=== PATIENT | female | born 1990 | race Caucasian/White ===

== ENCOUNTER 2019-02-03 15:51 | Emergency (ER) | payer MEDICAID ==
[~2019-02-03] VITALS: Ht 157.5 cm; Wt 120.5 kg
[2019-02-03 16:08] VITALS: Ht 157.5 cm; Wt 120.5 kg
[2019-02-03] MEDS ORDERED: LISINOPRIL-HCT1 EAC4 PO (16:12)
[2019-02-03] MEDS ORDERED: [UNRECOGNIZED DRUG - OTHER] (16:16)
[2019-02-03] MEDS ORDERED: PROVENTIL/2.5 MG/3 M INH (16:41)
[2019-02-03] MEDS ORDERED: ALBUTEROL SULF8.5 GM INH (16:41)
[2019-02-03 17:25] VITALS: BP 151/97
== END 2019-02-03 17:25 | disposition home or self-care (01) ==
LOC: D.ER 15:51
DX: R06.2 Wheezing (principal); Z87.09 Personal history of other diseases of the respiratory system

== ENCOUNTER 2019-02-14 16:25 | Emergency (ER) | payer SELFPAY ==
[~2019-02-14] VITALS: Ht 157.5 cm; Wt 127.3 kg
[~2019-02-14 16:25] MED LIST: ALBUTEROL SULF8.5 GM INH; LISINOPRIL-HCT1 EAC4 PO; PROVENTIL/2.5 MG/3 M INH; [UNRECOGNIZED DRUG - OTHER]
[2019-02-14 16:30] VITALS: Ht 157.5 cm; Wt 127.3 kg
[2019-02-14 17:01] LABS: BASOPHILS 0.7 % (0-2); EOSINOPHILS 4.2 % (0-7); HEMATOCRIT 36.2 % (36.0-48.0); HEMOGLOBIN 12.2 g/dL (12-16); IMMATURE GRANULOCYTES 0.2 % (0-5); LYMPHOCYTES 32.2 % (15-50); MCH 28.2 pg (26.0-34.0); MCHC 33.7 g/dL (31.0-37.0); MCV 83.8 fL (80.0-100.0); MEAN PLATELET VOLUME 9.8 fL (7.4-10.4); NEUTROPHILS 56.7 % (40-80); PLATELET COUNT 242 10x3/uL (130-400); RBC 4.32 10x6/uL (4.00-5.40); WBC 6.1 10x3/uL (4.8-10.8)
[2019-02-14 17:26] LABS: ALBUMIN 3.5 g/dL (3.4-5.0); ALKALINE PHOSPHATASE 93 U/L (46-116); ALT (SGPT) 22 U/L (10-68); CALC OSMOLALITY 277 mosm/kg (275-300); CALCIUM 8.8 mg/dL (8.5-10.1); CARBON DIOXIDE 28.2 mmol/L (21.0-32.0); CHLORIDE - SERUM 105 mmol/L (98-107); CREATININE - SERUM 0.7 mg/dL (0.6-1.3); GLUCOSE 95 mg/dL (74-106); POTASSIUM - SERUM 4.1 mmol/L (3.5-5.1); PROTEIN - SERUM 7.4 g/dL (6.4-8.2); SODIUM 140 mmol/L (136-145); UREA NITROGEN 9 mg/dL (7-18); eGFR NON AFRICAN AMERICAN > 90 mL/min (90-120)
[2019-02-14] MEDS ORDERED: PHENERGAN DM SYR5 ML PO (20:18)
[2019-02-14] MEDS ORDERED: VIBRAMYCIN 100100 MG PO (20:18)
[2019-02-14] MEDS ORDERED: ALBUTEROL SULF8.5 GM INH (20:18)
[2019-02-14 20:58] VITALS: BP 138/93
== END 2019-02-14 20:58 | disposition home or self-care (01) ==
LOC: D.ER 16:25
PROVIDERS: Emergency Medicine
DX: J06.9 Acute upper respiratory infection, unspecified (principal); R50.9 Fever, unspecified

== ENCOUNTER 2019-04-02 16:48 | Emergency (ER) | payer SELFPAY ==
[~2019-04-02] VITALS: Ht 157.5 cm; Wt 129.6 kg
[~2019-04-02 16:48] MED LIST changes: +PHENERGAN DM SYR5 ML PO; +VIBRAMYCIN 100100 MG PO
[2019-04-02 17:40] VITALS: Ht 157.5 cm; Wt 129.6 kg
[2019-04-02] MEDS ORDERED: VOLTAREN75 MG PO (19:47)
[2019-04-02] MEDS ORDERED: ALBUTEROL SULF8.5 GM INH (19:47)
[2019-04-02] MEDS ORDERED: AMOXICILLIN500 M1 PO (19:47)
[2019-04-02 21:32] VITALS: BP 178/103
== END 2019-04-02 21:29 | disposition home or self-care (01) ==
LOC: D.ER 16:48
DX: K04.7 Periapical abscess without sinus (principal); K08.89 Other specified disorders of teeth and supporting structures

== ENCOUNTER 2019-04-09 20:41 | Emergency (ER) | payer SELFPAY ==
[~2019-04-09] VITALS: Ht 157.5 cm; Wt 129.5 kg
[~2019-04-09 20:41] MED LIST changes: +AMOXICILLIN500 M1 PO; +VOLTAREN75 MG PO
[2019-04-09 20:50] VITALS: Ht 157.5 cm; Wt 129.5 kg
[2019-04-09] MEDS ORDERED: CLEOCIN HCL300 MG PO (21:57)
[2019-04-09] MEDS ORDERED: EC-NAPROSYN500 MG PO (21:57)
[2019-04-09 22:17] VITALS: BP 135/74
== END 2019-04-09 22:18 | disposition home or self-care (01) ==
LOC: D.ER 20:41
DX: K08.89 Other specified disorders of teeth and supporting structures (principal); K02.9 Dental caries, unspecified

== ENCOUNTER 2019-04-21 12:08 | Emergency (ER) | payer MEDICAID ==
[~2019-04-21] VITALS: Ht 157.5 cm; Wt 129.5 kg
[~2019-04-21 12:08] MED LIST changes: +CLEOCIN HCL300 MG PO; +EC-NAPROSYN500 MG PO
[2019-04-21 12:17] VITALS: BP 146/89; Ht 157.5 cm; Wt 129.5 kg
[2019-04-21] MEDS ORDERED: ULTRAM50 MG PO (13:49)
[2019-04-21] MEDS ORDERED: ALBUTEROL SULF8.5 GM INH (13:50)
== END 2019-04-21 14:15 | disposition home or self-care (01) ==
LOC: D.ER 12:08
DX: R51 Headache (principal)